=== PATIENT | male | born 1945 | race Caucasian/White ===

== ENCOUNTER 2017-09-10 01:32 | Emergency (ER) | payer OTHER ==
[2017-09-10] MEDS ORDERED: MECLIZINE HCL 25 MG TABLET (FP) ONE (01:42)
[2017-09-10] MEDS ORDERED: MECLIZINE HCL 25 MG TABLET (FP) PO ONE (01:42)
--- NOTE | 2017-09-10 01:46 | PDOC ---
History of Present Illness - General Chief Complaint: Lightheaded Stated Complaint: CLOGGED EARS/DIZZY Time Seen by Provider: 09/10/17 01:42 History Source: Patient Exam Limitations: No Limitations - History of Present Illness Initial Comments: 09/10/17 01:43 This is a 72-year-old male who comes in complaining of vertigo. Patient has history of asthma and said that he was at the [facility] 2 nights ago with vertigo and had a complete workup including lab work and CAT scan and was diagnosed with vertigo. Patient was given some decongestants and said that he has been taking them but the vertigo has not improved. Patient otherwise denies any fever, chills, headache or any other complaints. PAST MEDICAL HISTORY: no significant history PAST SURGICAL HISTORY: no significant history FAMILY HISTORY: no pertinant history SOCIAL HISTORY: Pt lives with family and is employed. MEDICATIONS: reviewed ALLERGIES: As per nursing notes Review of Systems General: No fevers or chills, no weakness, no weight loss HEENT: No change in vision. No sore throat,. No ear pain CardioVascular: No chest pain or shortness of breath Respiratory:No cough, or wheezing. Gastrointestinal: no nausea, vomitting, diarrhea or constipation, No rectal bleeding Genitourinary: No dysuria, hematuria, or frequency Musculoskeletal: No joint or muscle pain or swelling Neurologic: No headache,+ vertigo, dizziness or loss of consciousness Psychiatric: nor depression Skin: No rashes or easy bruising Endocrine: no increased thirst or abnormal weight change Allergic: no skin or latex allergy All other systems reviewed and normal GENERAL: The patient is awake, alert, and fully oriented, in no acute distress. HEAD: Normal with no signs of trauma. EYES: Pupils equal, round and reactive to light, extraocular movements intact, sclera anicteric, conjunctiva clear. EXTREMITIES: Normal range of motion, no edema. NEUROLOGICAL: Normal speech, normal gait. PSYCH: Normal mood, normal affect. SKIN: Warm, Dry, normal turgor, no rashes or lesions noted. Assessment and plan: This is a 72-year-old male with vertigo. Patient given meclizine and a prescription for meclizine was sent). Patient discharged home told to follow-up with his primary care doctor. Patient has an appointment with his primary care doctor for today Past History - Past Medical History Allergies/Adverse Reactions: Allergies Allergy/AdvReac Type Severity Reaction Status Date / Time No Known Allergies Allergy Verified 09/10/17 01:34 Home Medications: Ambulatory Orders Aspirin [ASA -] 81 mg PO DAILY 09/10/17 Atorvastatin Ca [Lipitor] 20 mg PO HS 09/10/17 Ferrous Sulfate, Dried [Iron] 150 mg PO DAILY 09/10/17 Losartan Potassium 500 mg PO DAILY 09/10/17 Meclizine HCl [Antivert -] 25 mg PO QID #28 tablet 09/10/17 Triamterene/Hydrochlorothiazid [Triamterene-Hctz 37.5-25 mg Cp] 1 each PO DAILY 09/10/17 *DC/Admit/Observation/Transfer Diagnosis at time of Disposition: Vertigo - Discharge Dispostion Disposition: HOME Condition at time of disposition: Stable Admit: No - Prescriptions Prescriptions: Meclizine HCl [Antivert -] 25 mg PO QID #28 tablet - Referrals Referrals: Nessa Leos [Primary Care Provider] - - Patient Instructions Additional Instructions: Take meclizine 1 tablet as often as 4 times a day. Make sure you keep your appointment with your primary care doctor today. Return to the emergency department immediately with ANY new, persistent or worsening symptoms. Continue any medications as previously prescribed by your physician. You should follow up with your primary doctor as soon as possible regarding today's emergency department visit. . Please make sure your doctor reviews the results of your emergency evaluation. Thank you for coming to the Emergency Department today for your care. It was a pleasure to see you today. Please note that your evaluation is INCOMPLETE until you follow-up with your doctor.
[2017-09-10 01:48] VITALS: BP 127/87; PULSE 77; TEMP 97.9; BMI 27.5
== END 2017-09-10 03:14 | disposition home or self-care (01) ==
LOC: FER 01:32
DX: R42 Dizziness and giddiness (principal)
CPT/HCPCS: 99281-25